=== PATIENT | female | born 1990 | race African-American/Black ===

== ENCOUNTER 2017-05-28 05:30 | Emergency (ER) | payer MEDICAID ==
[~2017-05-28] VITALS: Ht 170.2 cm; Wt 65.0 kg
[2017-05-28 05:33] VITALS: BP 121/75; PULSE 98; RESP 16; TEMP 99.4; O2SAT 99
--- NOTE | 2017-05-28 06:07 | PD ---
HPI Chief Complaint: Abdominal Pain Time Seen by Provider: 05:53 Travel History International Travel<30 days: No Contact w/Intl Traveler<30days: No Traveled to known affect area: No History of Present Illness HPI The patient is a 26 year old female who presents to the [facility] emergency department with a history of 3 days of vaginal odor and pelvic discomfort with having sex. The patient reports that she first noticed the vaginal odor after having sexual intercourse. She reports that she has been with a new partner. She reports that they were using condoms up until recently. She denies having any vaginal discharge. She denies having any fevers. She denies having any pelvic pain. She denies having any nausea, vomiting, or diarrhea. She reports that she has been moving her bowels well. She denies having any urinary symptoms. The patient reports that her last menstrual cycle was on May 05. She reports that it only lasted 2 days. She reports that normally her cycle lasts for 4-5 days. She has not taken a test. She reports that she's had a tubal ligation. Otherwise on review of systems, the patient denies any recent cough, congestion, neck pain, chest pain, shortness of breath, abdominal pain, or neurologic symptoms. PFSH Past Medical History Narrative Medical The patient's past medical history is significant for asthma, depression. Asthma: Yes Depression: Yes Diminished Hearing: No ?: Not LMP: 05/05 Tubal Ligation: Yes Past Surgical History Narrative Surgical The patient's past surgical history is significant for C-sections 3, appendectomy, cyst removal from her throat, bilateral tubal ligation. Section: Yes (X 3) Other Surgery: Yes (cyst removed from neck) Social History Alcohol Use: Yes Tobacco Use: Yes (1/2 PPD) Substance Use: No Allergies-Medications (Allergen,Severity, Reaction): Coded Allergies: No Known Allergies (Unverified , 05/28/17) Reported Meds & Prescriptions Reported Meds & Active Scripts Active Flagyl (Metronidazole) 500 Mg Tab 500 Mg PO BID 7 Days Review of Systems Except as stated in HPI: all other systems reviewed are Neg General / Constitutional: No: Fever Eyes: No: Visual changes HENT: No: Headaches Cardiovascular: No: Chest Pain or Discomfort Respiratory: No: Shortness of Breath Gastrointestinal: No: Abdominal Pain Genitourinary: Positive: Other (vaginal odor), No: Dysuria Musculoskeletal: No: Pain Skin: No Rash Neurologic: No: Weakness Psychiatric: No: Depression Endocrine: No: Polydipsia Hematologic/Lymphatic: No: Easy Bruising Physical Exam Narrative General: The patient is a well-developed well-nourished female in no acute distress. Head and Neck exam: Head is normocephalic atraumatic. Cardiovascular: Regular rate and rhythm without murmurs, gallops, or rubs. Lungs: Clear to auscultation bilaterally. No wheezes, rhonchi, or rales. Abdomen: Soft, without tenderness to palpation in all 4 quadrants of the abdomen. No guarding, rebound, or rigidity. Negative Verbena sign. Extremities: No clubbing, cyanosis, or edema. Back: No costovertebral angle tenderness to palpation. Neurologic Exam: Grossly nonfocal. Skin Exam: No rash noted. Intact skin that is warm and dry. Gynecologic exam: The patient was placed in the dorsal lithotomy position. Her external genitalia were examined. She had no evidence of rash or lesions. The speculum was placed into her vagina and the cervix was identified. She had a thin white discharge noted. No cervical friability. On Bimanual exam: she has no cervical motion tenderness. No adnexal tenderness or prominence noted on palpation. No uterine tenderness or enlargement noted on palpation. Data Data Last Documented VS Vital Signs Date Time Temp Pulse Resp B/P Pulse Ox O2 Delivery O2 Flow Rate FiO2 05/28/17 05:33 99.4 98 16 121/75 99 Room Air Orders Gc And Chlamydia Pcr (05/28/17 06:00) Wet Prep Profile (05/28/17 06:00) Urinalysis - C+S If Indicated (05/28/17 06:00) [facility] Medical Decision Making Medical Screen Exam Complete: Yes Emergency Medical Condition: Yes Medical Record Reviewed: Yes Differential Diagnosis Ectopic , versus bacterial vaginosis, versus trichomoniasis, versus gonorrhea, versus chlamydia Narrative Course During the course of the patients emergency department visit, the patients history, examination, and differential diagnosis were reviewed with the patient. The patient had a bedside test done. A wet prep and GC chlamydia were sent. A urine was sent for analysis. The patients laboratory studies were pending at the conclusion of my shift. The patient's case will be checked out to the oncoming emergency physician to disposition the patient based on the conclusion of her workup. I anticipate that the patient will be diagnosed with bacterial vaginosis and discharged home on Flagyl. Diagnosis Primary Impression: Vaginitis Qualified Code: N76.0 - Acute vaginitis Scripts Metronidazole (Flagyl)500 Mg [id number] Mg PO BID 7 Days Ref 0 Prov:Mady Melendrez MD 05/28/17 Disposition: DISCHARGE HOME Condition: Stable Mady Melendrez MD May 28, 2017 06:06
[2017-05-28] MEDS ORDERED: METR-1 PO (06:59)
[2017-05-28 07:21] LABS: BACTERIA, URINE OCC /hpf; BLOOD, URINE TRACE (NEG); CALCIUM OXALATE CRYSTALS,URINE MOD /hpf; COMMENT (UR) CULT NOT INDICATED; CULTURE IF INDICATED CULT NOT INDICATED; GLUCOSE,URINE NEG (NEG); KETONE, URINE NEG (NEG); MUCUS URINE FEW /lpf (OCC); NITRITE,URINE NEG (NEG); PH, URINE 5.5 (5.0-8.5); SQUAMOUS EPITHELIAL CELL URINE 4 /hpf (0-5); URINE COLOR YELLOW (YELLW/STRAW)
[2017-05-28 13:04] LABS: CHLAMYDIA PCR NOT DETECTED (NOT DETECT); NEISSERIA PCR NOT DETECTED (NOT DETECT)
== END 2017-05-28 08:00 | disposition home or self-care (01) ==
LOC: NEPC 05:30
DX: N76.0 Acute vaginitis (principal); N94.10 Unspecified dyspareunia; F10.10 Alcohol abuse, uncomplicated; F17.290 Nicotine dependence, other tobacco product, uncomplicated
CPT/HCPCS: 81001; 87210; 87491; 87591; 99283